=== PATIENT | female | born 1995 | race African-American/Black ===

== ENCOUNTER 2017-03-12 16:51 | Emergency (ER) | payer OTHER ==
[~2017-03-12] VITALS: Ht 167.6 cm; Wt 104.3 kg
[2017-03-12 17:59] VITALS: BP 115/58
[2017-03-12] MEDS ORDERED: ERYT1OIN6 OP (18:55)
--- NOTE | 2017-03-12 18:56 | PHYS DOC ---
Past Medical History Past Medical History: Asthma, Other Additional Past Medical Histor: seasonal allergies, eczema, PCOS Past Surgical History: No Surgical History Alcohol Use: None Drug Use: None Adult General Chief Complaint Chief Complaint: EYE PROBLEMS HPI HPI Patient is a 22 year old female who presents with a stye to the left eye that began one week ago. Patient denies any fever. He denies any vision loss. Review of Systems Review of Systems Constitutional: Denies fever or chills [] Eyes: sty left eye Musculoskeletal: Denies back pain or joint pain [] Integument: Denies rash or skin lesions [] Neurologic: Denies headache, focal weakness or sensory changes [] Allergies Allergies Allergies Coded Allergies Type Severity Reaction Last Updated Verified corn Allergy Intermediate rash 03/12/17 Yes Physical Exam Physical Exam Constitutional: Well developed, well nourished, no acute distress, non-toxic appearance. [] HENT: Normocephalic, atraumatic, bilateral external ears normal, oropharynx moist, no oral exudates, nose normal. [] Eyes: PERRLA, EOMI, left lateral conjunctiva with mild subconjunctival hemorrhage. Right conjunctiva with trace subconjunctival hemorrhage, left lower eyelid with 2 small stye on the exterior eyelid with no drainage. Skin: Warm, dry, no erythema, no rash. [] Back: No tenderness, no CVA tenderness. [] Extremities: No tenderness, no cyanosis, no clubbing, ROM intact, no edema. [] Neurologic: Alert and oriented X 3, normal motor function, normal sensory function, no focal deficits noted. [] Psychologic: Affect normal, judgement normal, mood normal. [] Current Patient Data Vital Signs Vital Signs Date Time Temp Pulse Resp B/P (MAP) Pulse Ox O2 Delivery O2 Flow Rate FiO2 03/12/17 17:59 98.0 92 18 99 Room Air 98.0 EKG EKG [] Radiology/Procedures Radiology/Procedures [] Course & Med Decision Making Course & Med Decision Making Pertinent Labs and Imaging studies reviewed. (See chart for details) Patient has tight to the left eye with subconjunctival hemorrhage to bilateral eyes. She was discharged with instructions to follow-up with the table saw operator as soon as possible especially for the subconjunctival hemorrhage with no known cause. She was also discharged with erythromycin ointment. Warm compresses recommended to the affected eye. Provided return precautions and discharged in stable condition. Dragon Disclaimer Dragon Disclaimer This electronic medical record was generated, in whole or in part, using a voice recognition dictation system. Departure Departure Impression: Primary Impression: Sty, external Additional Impression: Subconjunctival hemorrhage of both eyes Disposition: HOME, SELF-CARE Condition: STABLE Referrals: NO PCP (PCP) Saulo THOMAS MD Follow-up in 1-3 days Patient Instructions: Sty, Subconjunctival Hemorrhage Additional Instructions: You were seen for subconjunctival hemorrhage/red areas in the eye to both eyes as well as stye to the left eye lid. Apply warm compresses to the left lower eyelid. Use the prescribed antibiotic ointment as ordered. Follow-up with the provided table saw operator for the subconjunctival hemorrhage. Return to the ED symptoms worsen. Scripts Erythromycin Base (Erythromycin) 1 Gm Oint...g. 1 APPLIC OP Q4HRS W/A, #1 MISC Prov: MANSI ROBISON APRN 03/12/17 Problem Qualifiers Primary Impression: Sty, external Laterality: left Eyelid: lower Qualified Codes: H00.015 - Hordeolum externum left lower eyelid MANSI ROBISON APRN Mar 12, 2017 18:56
== END 2017-03-12 18:57 | disposition home or self-care (01) ==
LOC: ER 16:51
DX: H00.015 Hordeolum externum left lower eyelid (principal); H11.33 Conjunctival hemorrhage, bilateral; J45.909 Unspecified asthma, uncomplicated; E28.2 Polycystic ovarian syndrome; Z91.018 Allergy to other foods
CPT/HCPCS: 99283

== ENCOUNTER 2017-07-09 18:58 | Emergency (ER) | payer SELFPAY ==
[~2017-07-09] VITALS: Ht 162.6 cm; Wt 104.3 kg
[~2017-07-09 18:58] MED LIST: ERYT1OIN6 OP
[2017-07-09 19:25] VITALS: BP 162/85
[2017-07-09] MEDS ORDERED: ERYT1OIN6 OP (19:56)
--- NOTE | 2017-07-09 19:56 | PHYS DOC ---
Past Medical History Past Medical History: Asthma, Diabetes-Type II, Other Additional Past Medical Histor: seasonal allergies, eczema, PCOS Past Surgical History: No Surgical History Alcohol Use: None Drug Use: None Adult General Chief Complaint Chief Complaint: EYE PROBLEMS HPI HPI Patient is a 22 year old female presents the ED complaining of green discharge from eye 2 days. Patient states she woke this morning with crusted over eyes. Patient has had a history of pinkeye in the past. Patient works at daycare. Other sick contacts with similar symptoms. Describes it as itchy. Rates it as 5 out of 10. Denies vision changes, nausea/vomiting, fever, headache, chest pain or shortness of breath. Review of Systems Review of Systems Constitutional: Denies fever or chills [] Eyes: Complains of eye redness and green discharge. Denies change in visual acuity or eye pain [] HENT: Denies nasal congestion or sore throat [] Respiratory: Denies cough or shortness of breath [] Cardiovascular: No additional information not addressed in HPI [] GI: Denies abdominal pain, nausea, vomiting, bloody stools or diarrhea [] : Denies dysuria or hematuria [] Musculoskeletal: Denies back pain or joint pain [] Integument: Denies rash or skin lesions [] Neurologic: Denies headache, focal weakness or sensory changes [] Endocrine: Denies polyuria or polydipsia [] All other systems were reviewed and found to be within normal limits, except as documented in this note. Allergies Allergies Allergies Coded Allergies Type Severity Reaction Last Updated Verified corn Allergy Intermediate rash 03/12/17 Yes Physical Exam Physical Exam Constitutional: Well developed, well nourished, no acute distress, non-toxic appearance. [] HENT: Normocephalic, atraumatic, bilateral external ears normal, oropharynx moist, no oral exudates, nose normal. [] Eyes: PERRLA, EOMI, MILD BILATERAL CONJUNCTIVAL INJECTION. GREEN DISCHARGE. NO SWELLING., no discharge. [] Neck: Normal range of motion, no tenderness, supple, no stridor. [] Skin: Warm, dry, no erythema, no rash. [] Neurologic: Alert and oriented X 3, normal motor function, normal sensory function, no focal deficits noted. [] Psychologic: Affect normal, judgement normal, mood normal. [] Current Patient Data Vital Signs Vital Signs Date Time Temp Pulse Resp B/P (MAP) Pulse Ox O2 Delivery O2 Flow Rate FiO2 07/09/17 19:25 97.8 116 16 98 Room Air 97.8 EKG EKG [] Radiology/Procedures Radiology/Procedures [] Course & Med Decision Making Course & Med Decision Making Pertinent Labs and Imaging studies reviewed. (See chart for details) [] Dragon Disclaimer Dragon Disclaimer This electronic medical record was generated, in whole or in part, using a voice recognition dictation system. Departure Departure Impression: Primary Impression: Conjunctivitis Disposition: 01 HOME, SELF-CARE Condition: IMPROVED Referrals: MAYA FLORES DO (PCP) TOAN CASTANEDA MD Patient Instructions: Conjunctivitis (Viral and Bacterial) Scripts Erythromycin Base (Erythromycin) 1 Gm Oint...g. 1 APPLIC OP Q4HRS W/A, #1 MISC Prov: HIRAM ADKINS 07/09/17 HIRAM ADKINS Jul 09, 2017 19:56
== END 2017-07-09 20:10 | disposition home or self-care (01) ==
LOC: ER 18:58
DX: H10.9 Unspecified conjunctivitis (principal); J45.909 Unspecified asthma, uncomplicated; E11.9 Type 2 diabetes mellitus without complications; Z91.018 Allergy to other foods
CPT/HCPCS: 99283

== ENCOUNTER 2017-11-20 15:27 | Emergency (ER) | payer OTHER ==
[2017-11-21 08:03] LABS: NEGATIVE OBC STREP NEG; POSITIVE OBC STREP POS
== END 2017-11-20 17:09 | disposition home or self-care (01) ==
LOC: ER 15:27
DX: L02.412 Cutaneous abscess of left axilla (principal); J02.9 Acute pharyngitis, unspecified; E11.9 Type 2 diabetes mellitus without complications; J45.909 Unspecified asthma, uncomplicated; Z91.018 Allergy to other foods
CPT/HCPCS: 87070; 87880; 99283; 99284

== ENCOUNTER 2018-02-09 04:53 | Emergency (ER) | payer OTHER ==
[2018-02-09] MEDS: IPRATRPIUM/ALBUTEROL 0.5/2.5MG 3 ML NEBU. NEB (05:11)
[2018-02-09 05:24] LABS: ANION GAP 9 (6-14); BLOOD UREA NITROGEN 12 mg/dL (7-20); CALCIUM 8.4 mg/dL (8.5-10.1); CARBON DIOXIDE 27 mmol/L (21-32); CHLORIDE 105 mmol/L (98-107); CREATININE 1.1 mg/dL (0.6-1.0); GFR 75.9; GLUCOSE 101 mg/dL (70-99); MAGNESIUM 1.6 mg/dL (1.8-2.4); POTASSIUM 3.6 mmol/L (3.5-5.1); SODIUM 141 mmol/L (136-145)
[2018-02-09] MEDS: DEXAMETHASONE SOD PHOS 20 MG/5 ML VIAL. IV (05:26)
[2018-02-09 05:31] LABS: ADD MAN DIFF? NO
[2018-02-09 05:34] LABS: BASO % 1 % (0-3); EOS # 0.6 x10^3/uL (0.0-0.7); EOS % 7 % (0-3); HEMATOCRIT 36.8 % (36.0-47.0); HEMOGLOBIN 12.3 g/dL (12.0-15.5); LYMPH # 2.2 x10^3/uL (1.0-4.8); LYMPH % 26 % (24-48); MEAN CORPUSCULAR HEMOGLOBIN 29 pg (25-35); MEAN CORPUSCULAR HGB CONC 33 g/dL (31-37); MEAN CORPUSCULAR VOLUME 86 fL (79-100); MONO # 0.5 x10^3/uL (0.0-1.1); MONO % 6 % (0-9); NEUT % 60 % (31-73); PLATELET COUNT 251 x10^3/uL (140-400); RED CELL DISTRIBUTION WIDTH 18.6 % (11.5-14.5); WHITE BLOOD COUNT 8.4 x10^3/uL (4.0-11.0)
[2018-02-09 05:43] LABS: LACTIC ACID 1.1 mmol/L (0.4-2.0)
[2018-02-09 06:17] LABS: URINE HCG POC HCG NEGATIVE (Negative)
[2018-02-09 06:17] LABS: BILIRUBIN,URINE NEGATIVE (NEG); CLARITY,URINE CLEAR; COLOR,URINE YELLOW; GLUCOSE,URINE NEGATIVE (NEG); NITRITE,URINE NEGATIVE (NEG); PROTEIN,URINE NEGATIVE (NEG-TRACE)
[2018-02-09] MEDS: MAGNESIUM SULFATE 2GM 50 ML IV (06:30)
[2018-02-09 06:34] LABS: BACTERIA,URINE 0 /HPF (0-FEW); RBC,URINE 0 /HPF (0-2); SQUAMOUS EPITHELIAL CELL,UR MANY /LPF
[2018-02-09] MEDS: ALBUTEROL SULFATE 2.5 MG/3 ML NEBU. CONT NEB (06:47)
== END 2018-02-09 08:01 | disposition home or self-care (01) ==
LOC: ER 04:53
DX: J45.901 Unspecified asthma with (acute) exacerbation (principal); E11.9 Type 2 diabetes mellitus without complications; Z91.018 Allergy to other foods
CPT/HCPCS: 36415; 71046; 80048; 81001; 81025; 83605; 83735; 85025; 87086; 94640; 94644; 96365; 96375; 99285-25; J1100; J3475; J7613; J7620

== ENCOUNTER 2018-08-30 09:46 | Emergency (ER) | payer BC, OTHER ==
[~2018-08-30] VITALS: Ht 165.1 cm; Wt 108.9 kg
[~2018-08-30 09:46] MED LIST changes: +ALBU2.5V5 NEB; +ALBU2.5V8 INH; +DOXY100C2 PO; +FLUT12AE IH; +FLUT1DIS3 IH; +PRED50TA PO
[2018-08-30] MEDS ORDERED: methylPREDNISolone SOD SUCC PF 125 MG/2 ML VIAL. ONE (10:03)
[2018-08-30 10:24] LABS: BASO % 2 % (0-3); EOS # 0.2 x10^3/uL (0.0-0.7); EOS % 5 % (0-3); HEMATOCRIT 39.9 % (36.0-47.0); HEMOGLOBIN 13.1 g/dL (12.0-15.5); LYMPH # 1.1 x10^3/uL (1.0-4.8); LYMPH % 33 % (24-48); MEAN CORPUSCULAR HEMOGLOBIN 28 pg (25-35); MEAN CORPUSCULAR HGB CONC 33 g/dL (31-37); MEAN CORPUSCULAR VOLUME 85 fL (79-100); MONO # 0.5 x10^3/uL (0.0-1.1); MONO % 15 % (0-9); NEUT # 1.5 x10^3uL (1.8-7.7); NEUT % 46 % (31-73); PLATELET COUNT 328 x10^3/uL (140-400); RED BLOOD COUNT 4.71 x10^6/uL (3.50-5.40); RED CELL DISTRIBUTION WIDTH 15.2 % (11.5-14.5); WHITE BLOOD COUNT 3.4 x10^3/uL (4.0-11.0)
[2018-08-30] MEDS ORDERED: methylPREDNISolone SOD SUCC PF 125 MG/2 ML VIAL. IV ONE (10:30)
[2018-08-30] MEDS ORDERED: IPRATRPIUM/ALBUTEROL 0.5/2.5MG 3 ML NEBU. NEB ONE ×2 (10:30→11:30)
--- NOTE | 2018-08-30 10:35 | PHYS DOC ---
Past Medical History Past Medical History: Asthma, Diabetes-Type II, Other Additional Past Medical Histor: seasonal allergies, eczema, PCOS Past Surgical History: No Surgical History Alcohol Use: None Drug Use: None Adult General Chief Complaint Chief Complaint: SHORTNESS OF BREATH [facility] HPI Patient is a 23-year-old female who presents with complaint of cough, wheezing and shortness of breath for the last few days. Patient indicates that she was seen at [facility] a little while back in they tested her for the flu which turned out to be negative. She does indicate that at home 2 of her siblings were found to have influenza. Patient does indicate that she has been running a fever intermittently as high as 102. She states that the cough that she has had has been productive of a little bit of sputum. She denies any abdominal pain, nausea or vomiting. She states that symptoms of shortness of breath are worsened with exertion. Review of Systems Review of Systems Constitutional: Denies fever or chills [] Respiratory: Complains of cough, wheezing and shortness of breath [] Cardiovascular: No additional information not addressed in HPI [] Musculoskeletal: Denies back pain or joint pain [] Integument: Denies rash or skin lesions [] All other systems were reviewed and found to be within normal limits, except as documented in this note. Current Medications Current Medications Current Medications Medications (Trade) Dose Ordered Sig/Catie Start Time Stop Time Status Last Admin Dose Admin Albuterol/ Ipratropium (Duoneb) 3 ml 1X ONCE 08/30/18 11:30 08/30/18 11:31 DC 08/30/18 11:46 3 ML Info (CONTRAST GIVEN -- Rx MONITORING) 1 each PRN DAILY PRN 08/30/18 11:15 09/01/18 11:14 Cancel Iohexol (Omnipaque 300 Mg/ml) 75 ml 1X ONCE 08/30/18 11:30 08/30/18 11:31 Cancel Methylprednisolone Sodium Succinate (SOLU-Medrol 125MG VIAL) 125 mg STK-MED ONCE 08/30/18 10:03 08/30/18 10:05 DC Allergies Allergies Allergies Coded Allergies Type Severity Reaction Last Updated Verified corn Allergy Intermediate rash 03/12/17 Yes Physical Exam Physical Exam Constitutional: Well developed, well nourished, no acute distress, non-toxic appearance. [] HENT: Normocephalic, atraumatic, bilateral external ears normal, oropharynx moist, no oral exudates, nose normal. [] Eyes: PERRLA, EOMI, conjunctiva normal, no discharge. [] Neck: Normal range of motion, no tenderness, supple, no stridor. [] Cardiovascular: Tachycardic rate with regular rhythm [] Lungs & Thorax: Lungs demonstrate inspiratory and expiratory wheezes with coarse rhonchi in the bases to auscultation [] Abdomen: Bowel sounds normal, soft, no tenderness. [] Skin: Warm, dry, no erythema, no rash. [] Extremities: No tenderness, no cyanosis, no clubbing, ROM intact, no edema. [] Neurologic: Alert and oriented X 3, no focal deficits noted. [] Current Patient Data Vital Signs Vital Signs Date Time Temp Pulse Resp B/P (MAP) Pulse Ox O2 Delivery O2 Flow Rate FiO2 08/30/18 11:46 99 Room Air 08/30/18 10:48 100 20 127/58 (81) 08/30/18 09:46 98.5 98.5 Lab Values Laboratory Tests Test 08/30/18 10:08 08/30/18 10:24 White Blood Count 3.4 x10^3/uL (4.0-11.0) L Red Blood Count 4.71 x10^6/uL (3.50-5.40) Hemoglobin 13.1 g/dL (12.0-15.5) Hematocrit 39.9 % (36.0-47.0) Mean Corpuscular Volume 85 fL (79-100) Mean Corpuscular Hemoglobin 28 pg (25-35) Mean Corpuscular Hemoglobin Concent 33 g/dL (31-37) Red Cell Distribution Width 15.2 % (11.5-14.5) H Platelet Count 328 x10^3/uL (140-400) Neutrophils (%) (Auto) 46 % (31-73) Lymphocytes (%) (Auto) 33 % (24-48) Monocytes (%) (Auto) 15 % (0-9) H Eosinophils (%) (Auto) 5 % (0-3) H Basophils (%) (Auto) 2 % (0-3) Neutrophils # (Auto) 1.5 x10^3uL (1.8-7.7) L Lymphocytes # (Auto) 1.1 x10^3/uL (1.0-4.8) Monocytes # (Auto) 0.5 x10^3/uL (0.0-1.1) Eosinophils # (Auto) 0.2 x10^3/uL (0.0-0.7) Basophils # (Auto) 0.0 x10^3/uL (0.0-0.2) Sodium Level 138 mmol/L (136-145) Potassium Level 3.7 mmol/L (3.5-5.1) Chloride Level 103 mmol/L (98-107) Carbon Dioxide Level 23 mmol/L (21-32) Anion Gap 12 (6-14) Blood Urea Nitrogen 10 mg/dL (7-20) Creatinine 0.8 mg/dL (0.6-1.0) Estimated GFR (Cockcroft-Gault) 109.6 BUN/Creatinine Ratio 13 (6-20) Glucose Level 93 mg/dL (70-99) Calcium Level 9.1 mg/dL (8.5-10.1) Total Bilirubin 0.4 mg/dL (0.2-1.0) Aspartate Amino Transferase (AST) 20 U/L (15-37) Alanine Aminotransferase (ALT) 25 U/L (14-59) Alkaline Phosphatase 117 U/L (46-116) H Total Protein 7.6 g/dL (6.4-8.2) Albumin 3.5 g/dL (3.4-5.0) Albumin/Globulin Ratio 0.9 (1.0-1.7) L Influenza Type A Antigen Negative (NEGATIVE) Influenza Type B Antigen Negative (NEGATIVE) Laboratory Tests 08/30/18 10:08 Laboratory Tests 08/30/18 10:08 EKG EKG [] Radiology/Procedures Radiology/Procedures [] Impressions: Chest x-ray demonstrates no acute process. Course & Med Decision Making Course & Med Decision Making Pertinent Labs and Imaging studies reviewed. (See chart for details) [] Dragon Disclaimer Dragon Disclaimer This electronic medical record was generated, in whole or in part, using a voice recognition dictation system. Departure Departure Impression: Primary Impression: Acute bronchitis Additional Impression: Asthma with acute exacerbation Disposition: HOME, SELF-CARE Condition: STABLE Referrals: NO PCP (PCP) Patient Instructions: Acute Bronchitis, Asthma, Adult Scripts Methylprednisolone (MEDROL) 4 Mg Tab.ds.pk 1 PKG PO UD, #1 PKG Prov: JOANNE GALVAN Jr. DO 08/30/18 Azithromycin (ZITHROMAX) 250 Mg Tablet 1 PKG PO UD, #6 TAB Prov: JOANNE GALVAN Jr. DO 08/30/18 Problem Qualifiers Primary Impression: Acute bronchitis Bronchitis organism: unspecified organism Qualified Codes: J20.9 - Acute bronchitis, unspecified Additional Impression: Asthma with acute exacerbation Asthma severity: unspecified severity Asthma persistence: unspecified Qualified Codes: J45.901 - Unspecified asthma with (acute) exacerbation JOANNE GALVAN Jr. DO Aug 30, 2018 10:35
[2018-08-30 10:38] LABS: CALCIUM 9.1 mg/dL (8.5-10.1); CREATININE 0.8 mg/dL (0.6-1.0); GFR 109.6; POTASSIUM 3.7 mmol/L (3.5-5.1)
[2018-08-30 10:44] LABS: ALBUMIN 3.5 g/dL (3.4-5.0); ALBUMIN/GLOBULIN RATIO 0.9 (1.0-1.7); TOTAL BILIRUBIN 0.4 mg/dL (0.2-1.0); TOTAL PROTEIN 7.6 g/dL (6.4-8.2)
[2018-08-30 10:48] VITALS: BP 127/58
[2018-08-30 10:53] LABS: INFLUENZA A PATIENT NEGATIVE (NEGATIVE); INFLUENZA B PATIENT NEGATIVE (NEGATIVE)
--- NOTE | 2018-08-30 11:12 | RAD ---
CHEST PA LATERAL History: Shortness of breath FINDINGS: Comparison with February 09, 2018. FINDINGS: Heart size not enlarged. No pneumothorax, pleural effusion or focal consolidation. IMPRESSION: No evidence of acute infiltrate. Electronically signed by: Jaren March MD (08/30/2018 11:08 AM) [facility]
[2018-08-30] MEDS ORDERED: CONTRAST GIVEN. MC PRN (11:15)
[2018-08-30] MEDS ORDERED: IOHEXOL 300 MG/ML 100ML VIAL. IV ONE (11:30)
[2018-08-30] MEDS ORDERED: AZIT250T PO (12:29)
[2018-08-30] MEDS ORDERED: METH4TAB2 PO (12:29)
== END 2018-08-30 12:40 | disposition home or self-care (01) ==
LOC: ER 09:46
DX: J45.901 Unspecified asthma with (acute) exacerbation (principal); E11.9 Type 2 diabetes mellitus without complications; Z91.018 Allergy to other foods
CPT/HCPCS: 36415; 71046; 80053; 85025; 87804; 94640; 96374; 99284; J2930; J7620

== ENCOUNTER 2019-03-29 21:51 | Emergency (ER) | payer BC, OTHER ==
[~2019-03-29] VITALS: Ht 162.6 cm; Wt 108.9 kg
[~2019-03-29 21:51] MED LIST changes: +AZIT250T PO; +METH4TAB2 PO
[2019-03-29 21:55] VITALS: BP 131/66
[2019-03-29] MEDS ORDERED: IBUP-1007 PO (22:40)
--- NOTE | 2019-03-29 22:41 | PHYS DOC ---
Past Medical History Past Medical History: Asthma, Diabetes-Type II, Other Additional Past Medical Histor: seasonal allergies, eczema, PCOS Past Surgical History: No Surgical History Alcohol Use: None Drug Use: None Adult General Chief Complaint Chief Complaint: POST-OP PROBLEM HPI HPI Patient is a 24 year old AA female, accompanied by her mother, who presents to the emergency department with complaints of yellow to pink drainage on her surgical dressing that happened tonight. Patient states that 5 days ago she had surgery on her left axilla for removal of hydradenitis suppurativa by Dr. Pimentel. She states she has been taking Keflex before and continues to take Keflex after the procedure. She denies any redness, warmth, or foul odor from the incision site. She denies fever, numbness, tingling, or weakness of her left arm. She states she has been taking oxycodone and Tylenol for relief of her pain. Currently she rates her pain a 10 out of 10 on the pain scale, there are no alleviating factors, the pain increases of the area is touched. Review of Systems Review of Systems Constitutional: Denies fever or chills [] Respiratory: Denies cough or shortness of breath [] Cardiovascular: No additional information not addressed in HPI [] GI: Denies abdominal pain, nausea,or vomiting Musculoskeletal: Denies back pain or joint pain [] Integument: See history of present illness Neurologic: Denies headache, focal weakness or sensory changes [] Complete systems were reviewed and found to be within normal limits, except as documented in this note. Current Medications Current Medications Current Medications Medications (Trade) Dose Ordered Sig/[facility] Start Time Stop Time Status Last Admin Dose Admin Ibuprofen (Motrin) 600 mg 1X ONCE 03/29/19 22:45 03/29/19 22:49 DC 03/29/19 22:48 600 MG Allergies Allergies Allergies Coded Allergies Type Severity Reaction Last Updated Verified corn Allergy Intermediate rash 03/12/17 Yes Physical Exam Physical Exam Constitutional: Well developed, well nourished, no acute distress, non-toxic appearance, obese [] HENT: Normocephalic, atraumatic, bilateral external ears normal, nose normal. [] Eyes: PERRLA, EOMI, conjunctiva normal, no discharge. [] Neck: Normal range of motion, no stridor. [] Lungs & Thorax: Respirations even and unlabored, no retractions, no respiratory distress Skin: Warm, dry, no erythema, no rash; left axilla incision edges are well approximated without erythema, warmth, or drainage noted. There is no wound dehiscence present; There is serosanguineous drainage on the dressing brought in by the patient, no odor or purulent drainage noted. Extremities: No cyanosis, no clubbing, ROM intact, no edema. [] Neurologic: Alert and oriented X 3, no focal deficits noted. [] Psychologic: Affect normal, judgement normal, mood normal. [] Current Patient Data Vital Signs Vital Signs Date Time Temp Pulse Resp B/P (MAP) Pulse Ox O2 Delivery O2 Flow Rate FiO2 03/29/19 21:55 98.5 92 18 131/66 (87) 97 Room Air 98.5 EKG EKG [] Radiology/Procedures Radiology/Procedures [] Course & Med Decision Making Course & Med Decision Making Pertinent Labs and Imaging studies reviewed. (See chart for details) dx: wound check [address] Tomlin recommends the patient applies a new dressing as needed, continue to take medications as prescribed. Will advise patient that this can be normal with this procedure. Follow-up with Dr. Pimentel this week, call in the morning for an appointment. Patient was given 600 mg of ibuprofen in the emergency room for pain, a prescription was written for 600 mg of ibuprofen No. 30. Follow-up with Dr. Pimentel this week, call in the morning for an appointment. Continue taking medications as previously prescribed. Patient had requested stronger pain medication be prescribed, I advised this patient that no pain medication stronger than oxycodone would be prescribed by myself. Patient verbalized an understanding of home care, medications, follow-up, and return to ED instructions and was in agreement with the plan of care. [] Dragon Disclaimer Dragon Disclaimer This electronic medical record was generated, in whole or in part, using a voice recognition dictation system. Departure Departure Impression: Primary Impression: Draining postoperative wound Disposition: 01 HOME, SELF-CARE Condition: STABLE Referrals: RINA MOURA MD (PCP) Patient Instructions: Wound Check Additional Instructions: Fill the prescription and take as directed. Continue taking oxycodone and antibiotics as reported. Change dressing as needed. Follow up with Dr. Pimentel this week, call in the morning for an appointment, return to the ER if your symptoms worsen. Scripts Ibuprofen (IBUPROFEN) 600 Mg Tablet 600 MG PO PRN Q6HRS PRN for INFLAMMATION for 10 Days, #30 TAB 0 Refills Prov: INEZ NORMAN APRN 03/29/19 Problem Qualifiers Primary Impression: Draining postoperative wound Encounter type: initial encounter Qualified Codes: T81.89XA - Other complications of procedures, not elsewhere classified, initial encounter INEZ NORMAN MANAGER SHIFT Mar 29, 2019 22:41
[2019-03-29] MEDS ORDERED: IBUPROFEN 200 MG TABLET. PO ONE (22:45)
== END 2019-03-29 22:53 | disposition home or self-care (01) ==
LOC: ER 21:51
DX: T81.89XA Other complications of procedures, not elsewhere classified, initial encounter (principal); J45.909 Unspecified asthma, uncomplicated; E11.9 Type 2 diabetes mellitus without complications; Z91.018 Allergy to other foods
CPT/HCPCS: 99282

== ENCOUNTER → 2020-11-18 | Outpatient (CLI) | payer BC, OTHER ==
[~2020-11-18] MED LIST changes: +IBUP-1007 PO
--- NOTE | 2020-11-18 15:40 | RAD ---
EXAM: Left upper extremity venous Doppler sonogram. HISTORY: Pain and swelling. TECHNIQUE: [place] scale and color Doppler sonographic evaluation of the left upper extremity veins with spectral waveform analysis was performed. FINDINGS: There is normal color flow, normal compressibility and there are normal spectral waveforms in the common extremity veins. IMPRESSION: No Doppler evidence of upper extremity venous thrombosis. Electronically signed by: Georgia Card MD (11/18/2020 3:37 PM) [id number]
== END ==
LOC: US 14:38
PROVIDERS: ATTEND Family Medicine
DX: I80.9 Phlebitis and thrombophlebitis of unspecified site (principal); R22.42 Localized swelling, mass and lump, left lower limb
CPT/HCPCS: 93971

== ENCOUNTER 2020-11-25 07:44 | Emergency (ER) | payer BC, OTHER ==
[~2020-11-25] VITALS: Ht 162.6 cm; Wt 122.7 kg
--- NOTE | 2020-11-25 08:03 | PHYS DOC ---
Past Medical History Past Medical History: Asthma, Diabetes-Type II, Other Additional Past Medical Histor: seasonal allergies, eczema, PCOS Past Surgical History: No Surgical History Smoking Status: Never Smoker Alcohol Use: None Drug Use: None General Adult EDM: Chief Complaint: ANKLE PROBLEM HPI: HPI: This is a pleasant 25-year-old female who presents emergency department today with right ankle pain. She rolled it yesterday. She has a sharp shooting pain that radiates mostly in the back of the ankle. She denies hearing a pop. She reports normal muscle strength on dorsiflexion and plantar flexion of the foot. Pain is moderate. She is having trouble ambulating and bearing weight. Review of systems negative for chest pain shortness of breath or any other traumatic injuries. She denies nausea or vomiting. All other review of systems negative. Heart Score: C/O Chest Pain: No Risk Factors: Risk Factors: DM, Current or recent (<one month) smoker, HTN, HLP, family history of CAD, obesity. Risk Scores: Score 0 - 3: 2.5% MACE over next 6 weeks - Discharge Home Score 4 - 6: 20.3% MACE over next 6 weeks - Admit for Clinical Observation Score 7 - 10: 72.7% MACE over next 6 weeks - Early Invasive Strategies Allergies: Allergies: Allergies Coded Allergies Type Severity Reaction Last Updated Verified corn Allergy Intermediate rash 03/12/17 Yes Physical Exam: PE: Constitutional: Well developed, well nourished, no acute distress, non-toxic appearance. [] HENT: Normocephalic, atraumatic, bilateral external ears normal, oropharynx moist, no oral exudates, nose normal. [] Eyes: PERRLA, EOMI, conjunctiva normal, no discharge. [] Neck: Normal range of motion, no tenderness, supple, no stridor. [] Cardiovascular:Heart rate regular rhythm, no murmur [] Lungs & Thorax: Bilateral breath sounds clear to auscultation [] Abdomen: Bowel sounds normal, soft, no tenderness, no masses, no pulsatile masses. [] Skin: Warm, dry, no erythema, no rash. [] Back: No tenderness, no CVA tenderness. [] Extremities: The patient's right ankle is swollen with tenderness palpation posterior. The gastrocnemius tendon is intact without defect. She has 5 out of 5 strength on dorsiflexion and plantar flexion of the foot. She has tenderness both on the medial and lateral aspect of the malleoli. Palpable pulse with using cap refi ll. Tender calf squeeze. Knee is nontender with normal range of motion . The remainder the extremities are atraumatic with normal range of motion at the joints and without any abnormalities. Neurovascular intact. Neurologic: Alert and oriented X 3, normal motor function, normal sensory function, no focal deficits noted. [] Psychologic: Affect normal, judgement normal, mood normal. [] EKG: EKG: [] Radiology/Procedures: Radiology/Procedures: [] Course & Med Decision Making: Course & Med Decision Making Pertinent Labs and Imaging studies reviewed. (See chart for details) [] X-rays unremarkable. We will give the patient a ankle splint with crutches and refer her to her PCP in 1 to 2 days for reexamination. If her pain persists of the next for 5 days she will need an MRI of her ankle. The patient was then discharged home in stable condition to follow up with their primary care cyndi shaverian over the next 1-2 days. They were to return if their symptoms worsened or if they were concerned for any reason. They were also instructed to return to the emergency department if they were unable to get the recommended and appropriate follow-up. [id number] discharge instructions and return precautions were given. Patient's questions were answered to their satisfaction. Patient is comfortable with plan. Dragon Disclaimer: Dragon Disclaimer: This electronic medical record was generated, in whole or in part, using a voice recognition dictation system. Departure Departure Impression: Primary Impression: Ankle injury Disposition: HOME / SELF CARE / HOMELESS Condition: STABLE Referrals: RINA MOURA MD (PCP) Patient Instructions: Ankle Pain Additional Instructions: EMERGENCY DEPARTMENT GENERAL DISCHARGE INSTRUCTIONS Follow-up with your primary physician in 1 to 2 days. Return to the emergency department if you have any new or concerning findings. If your pain persists you will need an MRI of your ankle within the next 5 to 7 days. Thank you for coming to [facility] Emergency Department (ED) today and trusting us with you care. We trust that you had a positive experience in our Emergency Department. If you wish to speak to the department management, you may call the Director at [phone]. Follow up is important in emergency/acute care visits. This condition should be evaluated by your primary care physician and any necessary consulting services for continued management within a few days (1-2) after discharge. Return to the emergency department if you have any new or concerning symptoms including but not limited to fever, chills, nausea, vomiting, intractable pain, any new rashes, chest pain, shortness of breath, uncontrolled bleeding, difficulty breathing, and/or vision loss. 1. Do you have a private Doctor? If you do not have a private doctor, please ask for a resource list of physicians or clinics that may be able to assist you with follow up care. 2. If a lab test or culture has been done and does not come back immediately, your results will be reviewed and you will be notified if you need a change in treatment. 3. Your care today has been supervised by a physician who is specially trained in emergency care. Many problems require more than one evaluation for a complete diagnosis and treatment. We recommend that you schedule your follow up appointment as recommended to ensure complete treatment of you illness or injury. If you are unable to obtain follow up care and continue to have a problem, or if your condition worsens, we recommend that you return to the ED. 4. We are not able to safely determine your condition over the phone nor are we able to give sound medical advice over the phone. For these safety reasons, if you call for medical advice we will ask you to come to the ED for further evaluation. IF YOUR SYMPTOMS WORSEN OR NEW SYMPTOMS DEVELOP, OR YOU HAVE CONCERNS ABOUT YOUR CONDITION; OR IF YOUR CONDITION WORSENS WHILE YOU ARE WAITING FOR YOUR FOLLOW UP APPOINTMENT; EITHER CONTACT YOUR PRIMARY CARE DOCTOR, THE PHYSICIAN WHOSE NAME AND NUMBER YOU WERE GIVEN, OR RETURN TO THE ED IMMEDIATELY. SHERI FLEMING MD November 25, 2020 08:03
[2020-11-25 08:05] VITALS: BP 141/85
--- NOTE | 2020-11-25 08:33 | RAD ---
Site ID: [id number] EXAMINATION: XR RT TIBIA+FIBULA , XR EXAM OF ANKLE_RIGHT 3VIEWS. HISTORY: 25 years Female Reason: right ankle pain / Spl. Instructions: / History: . COMPARISON: None. FINDINGS: No fracture, dislocation or radiopaque foreign body seen in 3 views of the right ankle and 2 views of the right tibia and fibula. The joint spaces and articular surfaces appear unremarkable. IMPRESSION: Unremarkable exam. Electronically signed by: Brandon Franco MD (11/25/2020 8:31 AM) [id number]
== END 2020-11-25 09:20 | disposition home or self-care (01) ==
LOC: ER 07:44
DX: S99.911A Unspecified injury of right ankle, initial encounter (principal); J45.909 Unspecified asthma, uncomplicated; E11.9 Type 2 diabetes mellitus without complications; Z91.018 Allergy to other foods; X50.9XXA Other and unspecified overexertion or strenuous movements or postures, initial encounter; Y93.89 Activity, other specified; Y92.89 Other specified places as the place of occurrence of the external cause; Y99.8 Other external cause status
CPT/HCPCS: 73590; 73610; 99284; L4350